=== PATIENT | male | born 1990 | race African-American/Black ===

== ENCOUNTER 2016-11-27 21:18 | Emergency (ER) | payer OTHER ==
[2016-11-27 21:26] VITALS: BP 138/71; BMI 23.1
--- NOTE | 2016-11-27 22:10 | DR.GENAD ---
HPI - PCP Primary Care Physician: MANCERA - Complaint/Symptoms Chief Complaint:: PT STATES" ME AND MY WAS FUSSING AND I JUST WENT OUT DON 'T KNOW WHAT HAPPENED " - Source History Provided: Patient - Mode of Arrival Mode of Arrival: EMS - Timing Onset of Chief Complaint: 11/27/16 PMH - PMH Past Medical History: Yes Past Medical History: Anxiety, Asthma Past Surgical History: Yes Surgical History: Ortho Surgery Past Surgical History Comment: LT KNEE - Family History History of Family Medical Conditions: Yes Family Medical History: Diabetes Mellitus, Hypertension - Social History Does patient currently use any type of tobacco product: Yes Have you used tobacco products in the last 12 months: Yes Type of Tobacco Use: Cigarettes Does any household member use tobacco: Yes Alcohol Use: Occasionally Do you use any recreational Drugs:: No Lives With: Family Lives Where: Home - infectious screening In the last 2 months have you had wt loss of >10#?: NO Have you had fever, night sweats or hemotysis?: No Have you traveled outside the country in the last 6 months?: No Isolation: Standard ROS - Review of Systems Eyes: No Symptoms Reported ENTM: No Symptoms Reported Respiratoy: No Symptoms Reported Cardiovascular: No Symptoms Reported Gastrointestinal/Abdominal: No Symptoms Reported Genitourinary: No Symptoms Reported Neurological: No Symptoms Reported Musculoskeletal: No Symptoms Reported Integumentary: No Symptoms Reported Hematologic/Lymphatic: No Symptoms Reported Endocrine: No Symptoms Reported Psychiatric: No Symptoms Reported All Other Systems: Reviewed and Negative PE - Vital Signs Vitals: Temperature 98.0 F Pulse Rate 61 Respiratory Rate 16 Blood Pressure 138/71 O2 Sat by Pulse Oximetry 100 - General General Appearance: Alert, In No Apparent Distress - Head Head Exam: Normal Inspection, Atraumatic - Eyes Eye exam: Normal Appearance, PERRL, EOMI - ENT ENT Exam: Normal Exam External Ear Exam: Normal External Inspection TM/Canal Exam: Bilateral Normal Nose Exam: Normal Nose Exam Mouth Exam: Normal Inspection Throat Exam: Normal Inspection - Neck Neck Exam: Normal Inspection - Chest Chest Inspection: Normal Inspection - Respiratory Respiratory Exam: Normal Lung Sounds Bilat Respiratory Exam: Bilateral Clear to Auscultation - Cardiovascular Cardiovascular Exam: Regular Rate, Normal Rhythm - Abdominal Exam Abdominal Exam: Normal Inspection Abdominal Tenderness: negative: RUQ, RLQ, LUQ, LLQ, Epigastrium, Suprapubic, Diffuse, Mild, Moderate, Severe, Other - Extremities Extremities Exam: Normal Inspection, Full ROM - Back Back Exam: Normal Inspection, Full ROM - Neurologic Neurological Exam: Alert, Oriented X3, CN II-XII Intact - Psychiatric Psychiatric Exam: Normal Affect - Skin Skin Exam: Warm, Dry, Intact ROR - Labs Reviewed Result Diagrams: 11/27/16 22:20 11/27/16 22:20 Laboratory: WBC 8.3 X10^3/uL (3.6-10.0) 11/27/16 22:20 RBC 4.64 X10^6/uL (4.7-6.0) L 11/27/16 22:20 Hgb 13.9 g/dL (13.5-18.0) 11/27/16 22:20 Hct 41.4 % (42.0-54.0) L 11/27/16 22:20 MCV 89.1 fL (80.0-100.0) 11/27/16 22:20 MCH 30.0 pg (27.0-34.0) 11/27/16 22:20 MCHC 33.6 g/dL (33.0-35.0) 11/27/16 22:20 RDW 13.2 % (11.6-16.5) 11/27/16 22:20 Plt Count 236 X10^3/uL (150.0-450.0) 11/27/16 22:20 MPV 8.0 fL (7.4-11.0) 11/27/16 22:20 Neut % 62.2 % (42.0-75.0) 11/27/16 22:20 Lymph % 26.9 % (21.0-51.0) 11/27/16 22:20 [place] % 7.4 % (0.0-13.0) 11/27/16 22:20 Eos % 2.3 % (0.9-2.9) 11/27/16 22:20 Baso % 1.2 % (0.2-1.0) H 11/27/16 22:20 Neut # 5.1 x10^3/uL (2.2-4.8) H 11/27/16 22:20 Lymph # 2.2 X10^3/uL (1.3-2.9) 11/27/16 22:20 [place] # 0.6 x10^3/uL (0.3-0.8) 11/27/16 22:20 Eos # 0.2 x10^3/uL (0.0-0.2) 11/27/16 22:20 Baso # 0.1 X10^3/uL (0.0-0.1) 11/27/16 22:20 Absolute Nucleated RBC 0.0 /100WBC 11/27/16 22:20 Sodium 142 mmol/L (136-145) 11/27/16 22:20 Corrected Sodium 143 mmol/L (136-145) 11/27/16 22:20 Potassium 3.5 mmol/L (3.5-5.1) 11/27/16 22:20 Chloride 107 mmol/L (98-107) 11/27/16 22:20 Carbon Dioxide 26.2 mmol/L (21-32) 11/27/16 22:20 BUN 10 mg/dL (7-18) 11/27/16 22:20 Creatinine 1.09 mg/dL (0.70-1.30) 11/27/16 22:20 Est GFR (MDRD) Af Amer > 60 (>60) 11/27/16 22:20 Est GFR (MDRD) Non-Af > 60 (>60) 11/27/16 22:20 Glucose 121 mg/dL (65-99) H 11/27/16 22:20 Calcium 8.6 mg/dL (8.5-10.1) 11/27/16 22:20 - Diagnosis Discharge Problem: Marital conflict - Discharge Plan Condition: Stable - Follow ups/Referrals Follow ups/Referrals: ELPIDIO MANCERA [Primary Care Provider] - 3 days - Instructions
[2016-11-27 22:41] LABS: BASOPHILS # (AUTO) 0.1 X10^3/uL (0.0-0.1); BASOPHILS % (AUTO) 1.2 % (0.2-1.0); BLOOD UREA NITROGEN 10 mg/dL (7-18); CALCIUM 8.6 mg/dL (8.5-10.1); CARBON DIOXIDE 26.2 mmol/L (21-32); CHLORIDE 107 mmol/L (98-107); COR NA(FOR HYPERGLY) 143 mmol/L (136-145); CREATININE 1.09 mg/dL (0.70-1.30); EOSINOPHILS # (AUTO) 0.2 x10^3/uL (0.0-0.2); EOSINOPHILS % (AUTO) 2.3 % (0.9-2.9); HEMATOCRIT 41.4 % (42.0-54.0); HEMOGLOBIN 13.9 g/dL (13.5-18.0); LYMPHOCYTES # (AUTO) 2.2 X10^3/uL (1.3-2.9); LYMPHOCYTES % (AUTO) 26.9 % (21.0-51.0); MEAN CORPUSCULAR HGB CONC 33.6 g/dL (33.0-35.0); MEAN CORPUSCULAR VOLUME 89.1 fL (80.0-100.0); MONOCYTES # (AUTO) 0.6 x10^3/uL (0.3-0.8); MONOCYTES % (AUTO) 7.4 % (0.0-13.0); NEUTROPHILS # (AUTO) 5.1 x10^3/uL (2.2-4.8); NEUTROPHILS % (AUTO) 62.2 % (42.0-75.0); PLATELET COUNT 236 X10^3/uL (150.0-450.0); RED BLOOD COUNT 4.64 X10^6/uL (4.7-6.0); RED CELL DISTRIBUTION WIDTH 13.2 % (11.6-16.5); SODIUM 142 mmol/L (136-145); WHITE BLOOD COUNT 8.3 X10^3/uL (3.6-10.0); eGFR BLACK RACES > 60 (>60); eGFR NON BLACK RACES > 60 (>60)
== END 2016-11-27 23:22 | disposition home or self-care (01) ==
LOC: ER 21:18
DX: R41.0 Disorientation, unspecified (principal); Z63.0 Problems in relationship with spouse or partner
CPT/HCPCS: 36415; 80048; 85025; 99282

== ENCOUNTER 2017-01-19 08:37 | Emergency (ER) | payer OTHER ==
[2017-01-19 08:41] VITALS: BP 130/65; BMI 23.1
--- NOTE | 2017-01-19 09:32 | DR.GENAD ---
HPI - PCP Primary Care Physician: FIORDALIZA - HPI Comment HPI Comment: N/V WITH ABDOMINAL PAIN. THREW UP ONCE AND NOTED BLOOD IN VOMITUS. NO MELENA OR DIARRHEA OR BOOD IN STOOL. NO FEVER OR DYSURIA. - Complaint/Symptoms Chief Complaint Doctors Comments: ABDOMINAL PAIN, THREW UP BLOOD TIMES ONE, N/V TODAY. Chief Complaint:: PT C/O THROWING UP BLOOD. PT STATES HE GOT TO WORK THIS AM AND HE ALL OF A SUDDEN GOT NASUEATED AND STARTED VOMITTING. PT DESCRIBES HIS VOMIT MUCOUS WITH BLOOD STREAKS THROUGHOUT VOMITUS - Nurses notes reviewed Nurses Notes Review: Yes - Source History Provided: Patient - Mode of Arrival Mode of Arrival: Ambulatory - Timing Onset of Chief Complaint: 01/19/17 Came on: Suddenly - Duration Duration: Constant Duration: Hours - Severity Severity: Moderate PMH - PMH Past Medical History: Yes Past Medical History: Anxiety, Asthma Past Surgical History: Yes Surgical History: Ortho Surgery - Family History History of Family Medical Conditions: Yes Family Medical History: Diabetes Mellitus, Hypertension - Social History Does patient currently use any type of tobacco product: Yes Have you used tobacco products in the last 12 months: Yes Type of Tobacco Use: Cigarettes Does any household member use tobacco: Yes Alcohol Use: None Do you use any recreational Drugs:: No Lives With: Family Lives Where: Home - infectious screening In the last 2 months have you had wt loss of >10#?: NO Have you had fever, night sweats or hemotysis?: No Have you traveled outside the country in the last 6 months?: No Isolation: Standard ROS - Review of Systems Constitutional: Malaise, Fatigue. negative: Chills, Fever Eyes: No Symptoms Reported. negative: Eye Pain, Discharge ENTM: Nose Congestion (SLIIGHT DUE TO ALLERGY. ). negative: Ear Pain, Nose Discharge, Throat Pain Respiratoy: Non-Productive Cough. negative: Productive Cough, Short of Breath, Wheezing Cardiovascular: No Symptoms Reported. negative: Chest Pain Gastrointestinal/Abdominal: Abdominal Pain, Nausea, Vomiting. negative: Diarrhea Genitourinary: No Symptoms Reported. negative: Dysuria, Frequency, Hematuria Neurological: Weakness. negative: Headache, Dizziness Musculoskeletal: Muscle Pain Integumentary: No Symptoms Reported Hematologic/Lymphatic: No Symptoms Reported Endocrine: No Symptoms Reported All Other Systems: Reviewed and Negative PE - Vital Signs Vitals: Temperature 97.6 F Pulse Rate 62 Respiratory Rate 18 Blood Pressure 130/65 O2 Sat by Pulse Oximetry 100 - General Limitations: No Limitations General Appearance: Alert - Head Head Exam: Normal Inspection - Eyes Eye exam: Normal Appearance - ENT ENT Exam: Normal External Ear Exam External Ear Exam: Normal External Inspection TM/Canal Exam: Bilateral Normal Nose Exam: Normal Nose Exam Mouth Exam: Normal Inspection Throat Exam: Normal Inspection - Neck Neck Exam: Normal Inspection - Chest Chest Inspection: Symmetric Chest Wall Rise - Respiratory Respiratory Exam: Normal Lung Sounds Bilat Respiratory Exam: Bilateral Clear to Auscultation - Cardiovascular Cardiovascular Exam: Regular Rate, Normal Rhythm - Abdominal Exam Abdominal Exam: Normal Bowel Sounds, Soft, Tenderness (LUQ ABDOMINAL TENDERNESS) - Extremities Extremities Exam: Normal Inspection - Back Back Exam: Normal Inspection - Neurologic Neurological Exam: Alert, Oriented X3 - Psychiatric Psychiatric Exam: Normal Affect, Normal Mood - Skin Skin Exam: Normal Color MDM - Differential Diagnosis Differential Diagnosis: ABDOMINAL PAIN, BOWEL OBSTRUCTION, PUD, H PYLORI POSITIVE. Course - Treatment Treatment: SEE ORDERS. - Education/Counseling Education/Counseling: Patient, Education Educated On: Treatment, Diagnosis ROR - Labs Reviewed Laboratory Results Reviewed?: Yes Result Diagrams: 01/19/17 10:05 01/19/17 10:05 Laboratory: WBC 9.4 X10^3/uL (3.6-10.0) 01/19/17 10:05 RBC 4.96 X10^6/uL (4.7-6.0) 01/19/17 10:05 Hgb 15.1 g/dL (13.5-18.0) 01/19/17 10:05 Hct 44.1 % (42.0-54.0) 01/19/17 10:05 MCV 89.0 fL (80.0-100.0) 01/19/17 10:05 MCH 30.5 pg (27.0-34.0) 01/19/17 10:05 MCHC 34.3 g/dL (33.0-35.0) 01/19/17 10:05 RDW 12.6 % (11.6-16.5) 01/19/17 10:05 Plt Count 238 X10^3/uL (150.0-450.0) 01/19/17 10:05 MPV 7.8 fL (7.4-11.0) 01/19/17 10:05 Neut % 74.8 % (42.0-75.0) 01/19/17 10:05 Lymph % 19.1 % (21.0-51.0) L 01/19/17 10:05 [place] % 4.6 % (0.0-13.0) 01/19/17 10:05 Eos % 0.5 % (0.9-2.9) L 01/19/17 10:05 Baso % 1.0 % (0.2-1.0) 01/19/17 10:05 Neut # 7.0 x10^3/uL (2.2-4.8) H 01/19/17 10:05 Lymph # 1.8 X10^3/uL (1.3-2.9) 01/19/17 10:05 [place] # 0.4 x10^3/uL (0.3-0.8) 01/19/17 10:05 Eos # 0.0 x10^3/uL (0.0-0.2) 01/19/17 10:05 Baso # 0.1 X10^3/uL (0.0-0.1) 01/19/17 10:05 Absolute Nucleated RBC 0.0 /100WBC 01/19/17 10:05 Sodium 141 mmol/L (136-145) 01/19/17 10:05 Corrected Sodium TNP 01/19/17 10:05 Potassium 4.2 mmol/L (3.5-5.1) 01/19/17 10:05 Chloride 104 mmol/L (98-107) 01/19/17 10:05 Carbon Dioxide 32.1 mmol/L (21-32) H 01/19/17 10:05 BUN 10 mg/dL (7-18) 01/19/17 10:05 Creatinine 1.15 mg/dL (0.70-1.30) 01/19/17 10:05 Est GFR (MDRD) Af Amer > 60 (>60) 01/19/17 10:05 Est GFR (MDRD) Non-Af > 60 (>60) 01/19/17 10:05 Glucose 90 mg/dL (65-99) 01/19/17 10:05 Calcium 9.5 mg/dL (8.5-10.1) 01/19/17 10:05 Corrected Calcium TNP 01/19/17 10:05 Total Bilirubin 0.50 mg/dL (0.2-1.0) 01/19/17 10:05 AST 19 Units/L (15-37) 01/19/17 10:05 ALT 22 Units/L (12-78) 01/19/17 10:05 Alkaline Phosphatase 46 Units/L (46-116) 01/19/17 10:05 Total Protein 7.4 g/dL (6.4-8.2) 01/19/17 10:05 Albumin 3.9 g/dL (3.4-5.0) 01/19/17 10:05 Globulin 3.5 g/dL (2.5-4.5) 01/19/17 10:05 Albumin/Globulin Ratio 1.1 Ratio (1.1-2.1) 01/19/17 10:05 Amylase 44 Units/L (25-115) 01/19/17 10:05 Lipase 105 Units/L (73-393) 01/19/17 10:05 Specimen Type Clean catch urine 01/19/17 09:57 Urine Color Yellow (YELLOW) 01/19/17 09:57 Urine Appearance Clear (CLEAR) 01/19/17 09:57 Urine pH 8.0 (5.0 - 8.0) 01/19/17 09:57 Ur Specific [place] 1.010 (1.000-1.030) 01/19/17 09:57 Urine Protein Negative (NEGATIVE) 01/19/17 09:57 Urine Glucose (UA) Negative (NEGATIVE) 01/19/17 09:57 Urine Ketones Negative (NEGATIVE) 01/19/17 09:57 Urine Occult Blood Negative (NEGATIVE) 01/19/17 09:57 Urine Nitrite Negative (NEGATIVE) 01/19/17 09:57 Urine Bilirubin Negative (NEGATIVE) 01/19/17 09:57 Urine Urobilinogen Normal (NORMAL) 01/19/17 09:57 Ur Leukocyte Esterase 1+ (NEGATIVE) 01/19/17 09:57 Urine RBC None seen /HPF (NEGATIVE) 01/19/17 09:57 Urine WBC 2-4 /HPF (NEGATIVE) 01/19/17 09:57 Ur Squamous Epith Cells Few /HPF (NEGATIVE) 01/19/17 09:57 Urine Bacteria Trace /HPF (NEGATIVE) 01/19/17 09:57 Ur Culture Indicated? No/not indicated 01/19/17 09:57 H. pylori IgG Antibody Positive (NEGATIVE) A 01/19/17 10:05 - XRAY XRAY Interpreted by: Radiologist XRAY Findings: REPORT DISCUSS WITH PATIENT. - Diagnosis Discharge Problem: Abdominal pain Qualifiers: Abdominal location: right upper quadrant Qualified Code(s): R10.11 - Right upper quadrant pain Gastritis Qualifiers: Gastritis type: unspecified gastritis Chronicity: acute Gastritis bleeding: with bleeding Qualified Code(s): K29.01 - Acute gastritis with bleeding - Discharge Plan Disposition: HOME, SELF-CARE Condition: Stable Prescriptions: Ondansetron [Zofran ODT 8 mg] 8 mg PO Q8H PRN #12 tab PRN Reason: Nausea/Vomiting Ranitidine HCl [ZANTAC TAB 150 MG *] 150 mg PO BID #60 tab - Follow ups/Referrals Follow ups/Referrals: ELPIDIO MANCERA [Primary Care Provider] - 3 days - Instructions Instructions: Viral Gastroenteritis, Adult, [id number], Nausea and Vomiting, Adult, [id number], Abdominal Pain, Adult, [id number], Helicobacter Pylori Antibodies Test Additional Instructions: RETURN TO ED IF WORSE.FOLLOW UP WITH DR. MANCERA MONDAY TO DISCUSS POSITIVE H PYLORI TREATMENT.
--- NOTE | 2017-01-19 09:56 | RAD ---
HISTORY: Suprapubic abdominal pain, hemoptysis Study: Acute abdominal series, three views were obtained Comparison: November 23, 2015 Findings: The heart is normal. The lungs are clear. There is no pneumoperitoneum. There is a normal bowel gas p attern. No suspicious soft tissue calcifications are seen. Osseous structures are intact. IMPRESSION: No acute radiographic abnormality within the chest or abdomen. Reported By:
[2017-01-19 10:11] LABS: BASOPHILS # (AUTO) 0.1 X10^3/uL (0.0-0.1); EOSINOPHILS % (AUTO) 0.5 % (0.9-2.9); HEMATOCRIT 44.1 % (42.0-54.0); HEMOGLOBIN 15.1 g/dL (13.5-18.0); LYMPHOCYTES # (AUTO) 1.8 X10^3/uL (1.3-2.9); LYMPHOCYTES % (AUTO) 19.1 % (21.0-51.0); MEAN CORPUSCULAR HEMOGLOBIN 30.5 pg (27.0-34.0); MEAN CORPUSCULAR HGB CONC 34.3 g/dL (33.0-35.0); MEAN PLATELET VOLUME 7.8 fL (7.4-11.0); MONOCYTES # (AUTO) 0.4 x10^3/uL (0.3-0.8); MONOCYTES % (AUTO) 4.6 % (0.0-13.0); NEUTROPHILS % (AUTO) 74.8 % (42.0-75.0); PLATELET COUNT 238 X10^3/uL (150.0-450.0); RED BLOOD COUNT 4.96 X10^6/uL (4.7-6.0); RED CELL DISTRIBUTION WIDTH 12.6 % (11.6-16.5); WHITE BLOOD COUNT 9.4 X10^3/uL (3.6-10.0)
[2017-01-19 10:21] LABS: ALANINE AMINOTRANSFERASE 22 Units/L (12-78); ALBUMIN 3.9 g/dL (3.4-5.0); ALKALINE PHOSPHATASE 46 Units/L (46-116); AMYLASE 44 Units/L (25-115); ASPARTATE AMINO TRANSFERASE 19 Units/L (15-37); BLOOD UREA NITROGEN 10 mg/dL (7-18); CALCIUM 9.5 mg/dL (8.5-10.1); CARBON DIOXIDE 32.1 mmol/L (21-32); CHLORIDE 104 mmol/L (98-107); CREATININE 1.15 mg/dL (0.70-1.30); LIPASE 105 Units/L (73-393); SODIUM 141 mmol/L (136-145); TOTAL PROTEIN 7.4 g/dL (6.4-8.2); eGFR BLACK RACES > 60 (>60); eGFR NON BLACK RACES > 60 (>60)
[2017-01-19 10:22] LABS: APPEARANCE,URINE CLEAR (CLEAR); COLOR,URINE YELLOW (YELLOW); GLUCOSE, URINE NEGATIVE (NEGATIVE); KETONES,URINE NEGATIVE (NEGATIVE); PROTEIN,URINE NEGATIVE (NEGATIVE)
[2017-01-19 10:23] LABS: BACTERIA,URINE TRACE /HPF (NEGATIVE); BILIRUBIN,URINE NEGATIVE (NEGATIVE); BLOOD/HEMOGLOBIN,URINE NEGATIVE (NEGATIVE); LEUKOCYTE ESTERASE ,URINE 1+ (NEGATIVE); NITRITES,URINE NEGATIVE (NEGATIVE); RBC,URINE NONE SEEN /HPF (NEGATIVE); SQUAMOUS EPITHELIAL CELL,UR FEW /HPF (NEGATIVE); UROBILINOGEN,URINE NORMAL (NORMAL)
[2017-01-19] MEDS ORDERED: ZOFRAN INJ 4 MG VIAL IM ONE (10:44)
[2017-01-19] MEDS ORDERED: ZOFRAN INJ 4 MG VIAL ONE (10:45)
== END 2017-01-19 11:34 | disposition home or self-care (01) ==
LOC: ER 08:46
DX: R10.11 Right upper quadrant pain (principal); K29.01 Acute gastritis with bleeding
CPT/HCPCS: 36415; 74022; 80053; 81001; 82150; 83690; 85025; 86677; 96372; 99282; 99283; J2405